=== PATIENT | female | born 1950 | race Asian ===

== ENCOUNTER 2016-09-10 06:56 | Day surgery (SDC) | payer OTHER ==
[~2016-09-10] VITALS: Ht 165.1 cm; Wt 60.2 kg
[2016-09-10 07:39] VITALS: Ht 165.1 cm; Wt 60.2 kg
[2016-09-10] MEDS ORDERED: DULOXETINE (07:47)
[2016-09-10] MEDS ORDERED: NAPROXEN (07:47)
[2016-09-10] MEDS ORDERED: CITALOPRAM (07:47)
[2016-09-10] MEDS ORDERED: GABAPENTIN (07:47)
[2016-09-10] MEDS ORDERED: NITROSTAT (07:47)
[2016-09-10] MEDS ORDERED: LIDOCAINE 4% SOLUTION 50 ML BTL ONE (08:08)
[2016-09-10 08:14] VITALS: BP 137/66; PULSE 49; RESP 18
[2016-09-10] MEDS ORDERED: FENTAnyl 50 MCG/ML VIAL ONE (08:58)
[2016-09-10] MEDS ORDERED: MIDAZOLAM 1 MG/ML 2 ML INJ ONE (08:58)
[2016-09-10] MEDS ORDERED: ATROPINE 1 MG INJ ONE (08:58)
[2016-09-10] MEDS ORDERED: ATROPINE 1 MG/10 ML SYRINGE ONE (08:59)
[2016-09-10 09:20] VITALS: BP 128/77; PULSE 61; RESP 12
--- NOTE | 2016-09-10 11:49 | GILP ---
DATE OF PROCEDURE: PROCEDURE: Esophagogastroduodenoscopy. PREOPERATIVE DIAGNOSIS: Patient presenting with history of chronic difficulty in swallowing solid f oods, rule out esophagitis, rule out hiatal hernia. Rule out neoplasm. POSTOPERATIVE DIAGNOSES: 1. Mild reflux esophagitis, [place] classification A. 2. Small hiatal hernia. 3. Erosive gastritis of the antrum. DESCRIPTION OF PROCEDURE: After the informed written consent was obtained, the patient was asked to lie on the left lateral side, 2 mg Versed and 50 mcg of fentanyl was given as intravenous anesthesi a. When the patient became somnolent, the Olympus video upper endoscope was introduced into the orophar ynx, then into the esophagus. There is evidence of a mild reflux esophagitis noted, [place] cla ssification A. Biopsies were obtained to rule out eosinophilic esophagitis. Small hiatal hernia wa s noted. Scope at this time was advanced into the stomach. Multiple erosions were noted in the ant rum and the mid body of the stomach. Biopsies were done from the antrum, the lesser curvature and t he fundus to rule out H. pylori infection. The duodenum appeared normal up to the end of the third portion. No ulcer, no duodenitis noted. Endoscope at this time was withdrawn. No additional abnorm alities was detected and the procedure was terminated. PLAN: Recommend proton pump inhibitor therapy. Dictated By: KEMAR GOLDBERG/WEST[place] Conf#: [id number] DID#: [id number] CC: Jana Hilliard;*End*
--- NOTE | 2016-09-10 12:07 | GILP ---
DATE OF PROCEDURE: 09/10/2016 PROCEDURE: Colonoscopy. PREOPERATIVE DIAGNOSIS: Patient presenting with a history of chronic diarrhea unresponsive to routi ne therapy, rule out colorectal neoplasm, colitis. POSTOPERATIVE DIAGNOSES: Minimal internal and minimal external hemorrhoids. DESCRIPTION OF PROCEDURE: After the informed written consent was obtained, the patient was asked to lie on the left lateral side. Intravenous anesthesia was given which included 2 mg Versed and 50 m cg of fentanyl. When the patient became somnolent, the Olympus video colonoscope was introduced int o the rectum and scope was advanced all the way to the cecum. The entire colon appeared normal, no polyps, no colitis noted. Endoscope at this time was withdrawn. On the way out, minimal internal h emorrhoids and minimal external hemorrhoids were noted and the procedure was terminated. PLAN: Recommend further workup including small bowel workup and pancreatic disease workup. Dictated By: KEMAR WAITE MD [place]/NTS Conf#: [id number] DID#: [id number] CC: YANDY ARELLANO MD; KEMAR WAITE MD;*EndCC*
== END 2016-09-10 10:58 | disposition home or self-care (01) ==
LOC: GIL 06:56
PROVIDERS: ATTEND Internal Medicine Gastroenterology
DX: K21.0 Gastro-esophageal reflux disease with esophagitis (principal); K64.4 Residual hemorrhoidal skin tags; K64.8 Other hemorrhoids; K44.9 Diaphragmatic hernia without obstruction or gangrene; K29.60 Other gastritis without bleeding
CPT/HCPCS: 43239; 45378; 88305; 88313; J0461; J2250; J3010; Z7610